=== PATIENT | male | born 1980 | race Caucasian/White ===

== ENCOUNTER 2018-01-01 17:33 | Emergency (ER) | payer MEDICAID ==
[~2018-01-01] VITALS: Ht 167.6 cm; Wt 84.8 kg
[~2018-01-01 17:33] MED LIST: ARIP5TAB4 PO; ATOR20TA66 PO; CALC-793 PO; CALC0.253 PO; CALC667T5 PO; CHLO25TA2 PO; CLON-514 PO; ESCI10TA54 PO; LEVO137T2 PO; LORA10TA7 PO; LORA1TAB PO; MELA3TAB PO; OXCA600T37 PO; PHEN100C12 PO; QUET400T PO; RISP3TAB3 PO
[2018-01-01 17:45] VITALS: BP 124/65
[2018-01-01] MEDS ORDERED: CEPH500C2 PO (21:12)
[2018-01-01] MEDS ORDERED: cephalexin 250mg capsule PO ONE (21:20)
== END 2018-01-01 21:27 | disposition home or self-care (01) ==
LOC: ER 17:34
DX: S01.511A Laceration without foreign body of lip, initial encounter (principal); I10 Essential (primary) hypertension; Z79.899 Other long term (current) drug therapy; Y08.89XA Assault by other specified means, initial encounter; Y93.89 Activity, other specified; Y92.89 Other specified places as the place of occurrence of the external cause; Y99.8 Other external cause status
CPT/HCPCS: 99283

== ENCOUNTER 2019-04-28 14:17 | Emergency (ER) | payer MEDICAID ==
[~2019-04-28] VITALS: Ht 172.7 cm; Wt 91.8 kg
[~2019-04-28 14:17] MED LIST changes: -ARIP5TAB4 PO; -CALC-793 PO; -CALC0.253 PO; +CALC667T2 PO; -CALC667T5 PO; +CHOL10002 PO; +LISI-643 PO; -MELA3TAB PO; +MELA5TAB12 PO
--- NOTE | 2019-04-28 15:26 | NUR ---
SILVESTRE,CAREGIVER FROM [facility], STATES THAT PATIENT IS OUT OF HIS 1M DAILY ATIVAN PRESCRIBED BY ÁNGELA. PATIENT IS NOT OUT OF ANY OF HIS OTHER MEDICATIONS MALLORY RODRIGUEZ AWARE THAT PATIENT IS ON BOTH LORAZEPAM 1 MG DAILY AND CLONAZEPAM 1MG TID.
--- NOTE | 2019-04-28 15:34 | NUR ---
[place] [address] DOWNS
[2019-04-28] MEDS ORDERED: LORA-269 PO (15:39)
[2019-04-28 15:54] VITALS: BP 120/80
== END 2019-04-28 16:03 | disposition home or self-care (01) ==
LOC: ER 14:18
DX: F20.9 Schizophrenia, unspecified (principal); I10 Essential (primary) hypertension; Z76.0 Encounter for issue of repeat prescription; Z86.69 Personal history of other diseases of the nervous system and sense organs; Z98.890 Other specified postprocedural states; Z79.899 Other long term (current) drug therapy
CPT/HCPCS: 99283

== ENCOUNTER 2019-08-07 15:53 | Inpatient (IN) | payer MEDICAID ==
[~2019-08-07] VITALS: Ht 177.8 cm; Wt 90.1 kg
[~2019-08-07 15:53] MED LIST changes: -ESCI10TA54 PO; +ESCI10TA61 PO; +LORA-269 PO
[2019-08-07] MEDS ORDERED: LORazepam 2 mg/ml vial IV ONE (17:25)
[2019-08-07] MEDS ORDERED: TETanus/Pertussis (Acell)/Diphther VAC/PF (Tdap-Adult) 0.5ml syringe IMVAC ONE (17:30)
[2019-08-07] MEDS ORDERED: phenytoin sod ER 100mg capsule PO ONE (17:35)
[2019-08-07] MEDS ORDERED: oxcarbazepine 150mg tablet PO SCH (17:35)
[2019-08-07 17:55] LABS: BASOPHILS # (AUTO) 0.1 X10'3 (0-0.2); BASOPHILS % (AUTO) 0.9 % (0-1); EOSINOPHILS # (AUTO) 0.3 X10'3 (0-0.9); EOSINOPHILS % (AUTO) 2.4 % (0-6); HEMATOCRIT 36.6 % (42.0-52.0); HEMOGLOBIN 12.5 g/dl (14.0-17.9); LYMPHOCYTES # (AUTO) 1.3 X10'3 (1.1-4.8); LYMPHOCYTES % (AUTO) 11.1 % (21-51); MEAN CORPUSCULAR HEMOGLOBIN 31.2 PG (27.0-31.0); MEAN CORPUSCULAR HGB CONC 34.1 g/dL (33.0-36.5); MEAN CORPUSCULAR VOLUME 91.4 FL (78-98); MEAN PLATELET VOLUME 8.6 FL (7.4-10.4); MONOCYTES # (AUTO) 1.1 X10'3 (0-0.9); MONOCYTES % (AUTO) 9.1 % (2-12); NEUTROPHILS # (AUTO) 8.9 X10'3 (1.8-7.7); NEUTROPHILS % (AUTO) 76.5 % (42-75); PLATELET COUNT 160 X10'3 (140-440); RED BLOOD COUNT 4.01 X10'6 (4.70-6.10); RED CELL DISTRIBUTION WIDTH 12.5 % (11.5-14.5); WHITE BLOOD COUNT 11.6 X10'3 (4.5-11.0)
[2019-08-07 18:02] LABS: PARTIAL THROMBOPLASTIN TIME 28 SECONDS (22-32)
[2019-08-07 18:03] LABS: ALANINE AMINOTRANSFERASE 15 U/L (12-78); ALBUMIN 4.1 G/DL (3.4-5.0); ALBUMIN/GLOBULIN RATIO 1.3 (1.1-1.5); ALKALINE PHOSPHATASE 95 IU/L (46-116); ANION GAP 6 (8-16); ASPARTATE AMINO TRANSFERASE 21 U/L (10-37); BILIRUBIN,TOTAL 0.4 MG/DL (0.1-1.0); BLOOD UREA NITROGEN 15 MG/DL (7-18); BUN/CREATININE RATIO 12.6 (5.4-32.0); CALCIUM 7.3 MG/DL (8.5-10.1); CHLORIDE 95 MMOL/L (99-107); CREATININE 1.19 MG/DL (0.60-1.10); GLUCOSE 97 MG/DL (70-104); PHENYTOIN (DILANTIN) 18.5 UG/ML (10.0-20.0); POTASSIUM 3.6 MMOL/L (3.5-5.1); SODIUM 131 MMOL/L (135-145); TOTAL CARBON DIOXIDE 30.1 MMOL/L (24-32); TOTAL PROTEIN 7.3 G/DL (6.4-8.2); eGFR 67 ML/MIN
[2019-08-07] MEDS ORDERED: normal saline 1000ml 1,000 ML IV ONE (18:10)
[2019-08-07] MEDS ORDERED: QUET300T2 PO (19:12)
[2019-08-07] MEDS ORDERED: LIT300C PO (19:12)
[2019-08-07] MEDS ORDERED: BENZ1TAB7 PO (19:12)
[2019-08-07] MEDS ORDERED: magnesium Cl slow-release 64mg tablet PO PRN (19:35)
[2019-08-07] MEDS ORDERED: potassium Cl 20 mEq SR tablet PO PRN ×2 (19:35)
[2019-08-07] MEDS ORDERED: magnesium hydroxide 30ml (MOM) UD suspension PO PRN (19:35)
[2019-08-07] MEDS ORDERED: mag hydrox/Alum hydrox/simeth 30ml oral suspension PO PRN (19:35)
[2019-08-07] MEDS ORDERED: HYDROcodone/acetaminophen 5mg/325mg tablet PO PRN (19:35)
[2019-08-07] MEDS ORDERED: magnesium 2GM in 50ml NS 50 ML IV PRN (19:35)
[2019-08-07] MEDS ORDERED: acetaminophen 325mg tablet PO PRN (19:35)
[2019-08-07] MEDS ORDERED: potassium CL 10mEq/100ml bag 100 ML IV PRN ×2 (19:35)
[2019-08-07] MEDS ORDERED: magnesium 4gm in 100ml NS 100 ML IV PRN (19:35)
[2019-08-07] MEDS ORDERED: ondansetron/PF 4mg/2ml inj IV PRN (19:35)
--- NOTE | 2019-08-07 19:43 | NUR ---
CONTACT INFORMATION: SILVESTRE WILLIAMSON ([employer]ATION HOUSE[employer] OF [employer]) PHONE IS [phone]. PLEASE CALL THIS NUMBER FOR ANY UPDATES. HIS FATHER IS THE CONSERVATOR BRODERICK KRUGER. . PT IS CONTINENT MOST OF THE TIME. HE MAY NEED EXTRA PROMPTING BUT HE WILL COOPERATE. IF PT IS ADMITTED HE WILL NOT HAVE A CAREGIVER BUT WILL HAVE SOMEONE COME IN AND CHECK IN DAILY USUALLY IN THE AM.
[2019-08-07] MEDS: K and/or MAG REPLACEMENT MC SCH (20:00)
[2019-08-07 20:08] LABS: CLARITY,URINE CLEAR (Clear); COLOR,URINE YELLOW (Yellow); GLUCOSE, URINE NEGATIVE (Neg); KETONES,URINE NEGATIVE (Neg); LEUKOCYTE ESTERASE ,URINE NEGATIVE (Neg); NITRITES, URINE NEGATIVE (Neg); OCCULT BLOOD,URINE NEGATIVE (Neg); PH,URINE 7.5 (4.8-8.0); PROTEIN,URINE NEGATIVE (Neg); UROBILINOGEN,URINE 0.2 E.U/dL (0.2-1.0)
[2019-08-07 20:11] LABS: UA COLLECTION TYPE CLN CATCH MIDSTREAM
[2019-08-07 20:17] LABS: URINE AMPHETAMINE SCREEN NEGATIVE (Neg); URINE BARBITUATE SCREEN NEGATIVE (Neg); URINE BENZODIAZEPINES SCREEN NEGATIVE (Neg); URINE CANNABINOID SCREEN NEGATIVE (Neg); URINE COCAINE SCREEN NEGATIVE (Neg); URINE METHADONE SCREEN NEGATIVE (Neg); URINE OPIATE SCREEN NEGATIVE (Neg); URINE PHENCYCLIDINE SCREEN NEGATIVE (Neg)
[2019-08-07] MEDS ORDERED: calcium chloride inj. 1,000 MG in normal saline 100ml IV soln 100 ML IV ONE (20:30)
[2019-08-07 20:45] VITALS: BP 121/66
[2019-08-07] MEDS: heparin, porcine 5000 units/ml vial SQ SCH (20:50)
[2019-08-07] MEDS: benztropine 1mg tablet PO SCH (20:50)
[2019-08-07] MEDS: quetiapine 100mg tablet PO SCH (20:50)
[2019-08-07] MEDS: Melatonin 3mg tablet PO SCH (20:50)
[2019-08-07] MEDS: phenytoin sod ER 100mg capsule PO SCH (20:51)
[2019-08-07] MEDS: clonazePAM 1mg tablet PO SCH (20:51)
[2019-08-07] MEDS: calcium acetate 667mg (phosLO) tablet PO SCH (20:51)
[2019-08-07] MEDS: lithium carbonate 300mg SR tablet (LithoBID) PO SCH (21:11)
[2019-08-08 05:46] LABS: BASOPHILS # (AUTO) 0.1 X10'3 (0-0.2); BASOPHILS % (AUTO) 0.8 % (0-1); EOSINOPHILS # (AUTO) 0.5 X10'3 (0-0.9); EOSINOPHILS % (AUTO) 5.5 % (0-6); HEMATOCRIT 34.9 % (42.0-52.0); HEMOGLOBIN 12.2 g/dl (14.0-17.9); LYMPHOCYTES % (AUTO) 22.4 % (21-51); MEAN CORPUSCULAR HEMOGLOBIN 31.9 PG (27.0-31.0); MEAN CORPUSCULAR VOLUME 91.4 FL (78-98); MEAN PLATELET VOLUME 8.9 FL (7.4-10.4); MONOCYTES # (AUTO) 0.8 X10'3 (0-0.9); MONOCYTES % (AUTO) 9.7 % (2-12); NEUTROPHILS # (AUTO) 5.4 X10'3 (1.8-7.7); NEUTROPHILS % (AUTO) 61.6 % (42-75); PLATELET COUNT 161 X10'3 (140-440); RED BLOOD COUNT 3.82 X10'6 (4.70-6.10); RED CELL DISTRIBUTION WIDTH 12.6 % (11.5-14.5); WHITE BLOOD COUNT 8.7 X10'3 (4.5-11.0)
[2019-08-08 05:55] LABS: ALANINE AMINOTRANSFERASE 16 U/L (12-78); ALBUMIN 3.5 G/DL (3.4-5.0); ALBUMIN/GLOBULIN RATIO 1.2 (1.1-1.5); ALKALINE PHOSPHATASE 84 IU/L (46-116); ANION GAP 4 (8-16); ASPARTATE AMINO TRANSFERASE 21 U/L (10-37); BILIRUBIN,TOTAL 0.4 MG/DL (0.1-1.0); BLOOD UREA NITROGEN 15 MG/DL (7-18); BUN/CREATININE RATIO 13.9 (5.4-32.0); CALCIUM 7.5 MG/DL (8.5-10.1); CHLORIDE 99 MMOL/L (99-107); CREATININE 1.08 MG/DL (0.60-1.10); GLUCOSE 88 MG/DL (70-104); MAGNESIUM 1.9 MG/DL (1.5-2.4); POTASSIUM 3.8 MMOL/L (3.5-5.1); SODIUM 135 MMOL/L (135-145); TOTAL CARBON DIOXIDE 32.3 MMOL/L (24-32); TOTAL PROTEIN 6.5 G/DL (6.4-8.2); eGFR 75 ML/MIN
[2019-08-08 06:00] VITALS: BP 112/68
--- NOTE | 2019-08-08 06:07 | NUR ---
Patient report given, questions answered and plan of care reviewed with Corey Rossi.
--- NOTE | 2019-08-08 06:15 | NUR ---
Received report from Celena FRANCIS
[2019-08-08] MEDS: K and/or MAG REPLACEMENT MC SCH ×2 (07:06→20:00)
[2019-08-08] MEDS: LORazepam 1 MG tablet PO SCH (07:25)
[2019-08-08] MEDS: citalopram 20mg tablet PO SCH (07:27)
[2019-08-08] MEDS: loratadine 10mg tablet PO SCH (07:27)
[2019-08-08] MEDS: benztropine 1mg tablet PO SCH ×2 (07:28→20:51)
[2019-08-08] MEDS: clonazePAM 1mg tablet PO SCH ×3 (07:29→20:51)
[2019-08-08] MEDS: atorvastatin 20mg tablet PO SCH (07:29)
[2019-08-08] MEDS: phenytoin sod ER 100mg capsule PO SCH ×2 (07:29→20:52)
[2019-08-08] MEDS ORDERED: levoTHYROXINE 25mcg tablet PO SCH (07:30)
[2019-08-08] MEDS: lithium carbonate 300mg SR tablet (LithoBID) PO SCH ×2 (07:30→20:52)
[2019-08-08] MEDS ORDERED: levoTHYROXINE 112mcg tablet PO SCH (07:30)
[2019-08-08] MEDS: calcium acetate 667mg (phosLO) tablet PO SCH ×2 (07:30→20:53)
[2019-08-08] MEDS: vitamin D (cholecalciferol) 1,000 unit tablet PO SCH (07:31)
[2019-08-08] MEDS: heparin, porcine 5000 units/ml vial SQ SCH ×2 (07:35→20:51)
[2019-08-08] MEDS: chlorthalidone 25mg tablet PO SCH (07:38)
[2019-08-08] MEDS: lisinopril 10 MG tablet PO SCH (07:38)
--- NOTE | 2019-08-08 07:51 | NUR ---
Barcode would not scan into [employer]. Checked medication prior to administration. BP 109/47 HR58
[2019-08-08] MEDS ORDERED: LORazepam 1 MG tablet PO ONE (08:25)
[2019-08-08 10:00] VITALS: BP 124/64
--- NOTE | 2019-08-08 13:16 | NUR ---
PER PRE KINDERGARTEN TEACHER, WOULD PREFER TO WAIT TO ADMINISTER PT'S 1300 KLONOPIN WHILE PT IS RECEIVING HIS EEG
[2019-08-08 18:00] VITALS: BP 114/70
--- NOTE | 2019-08-08 18:12 | NUR ---
GAVE REPORT TO TITO STONER
--- NOTE | 2019-08-08 18:20 | NUR ---
Received patient report from TITO Rossi. Assumed patient care.
[2019-08-08] MEDS: Melatonin 3mg tablet PO SCH (20:51)
[2019-08-08] MEDS: quetiapine 100mg tablet PO SCH (20:52)
[2019-08-08 22:00] VITALS: BP 111/72
[2019-08-09 06:00] VITALS: BP 115/65
--- NOTE | 2019-08-09 06:00 | NUR ---
Patient in room ORTHO 4009. I have received report from Pia and had the opportunity to ask questions and assume patient care.
[2019-08-09 06:26] LABS: BASOPHILS # (AUTO) 0.1 X10'3 (0-0.2); BASOPHILS % (AUTO) 0.8 % (0-1); EOSINOPHILS # (AUTO) 0.5 X10'3 (0-0.9); EOSINOPHILS % (AUTO) 5.7 % (0-6); HEMATOCRIT 35.6 % (42.0-52.0); HEMOGLOBIN 12.3 g/dl (14.0-17.9); LYMPHOCYTES # (AUTO) 1.4 X10'3 (1.1-4.8); MEAN CORPUSCULAR HEMOGLOBIN 31.9 PG (27.0-31.0); MEAN CORPUSCULAR HGB CONC 34.7 g/dL (33.0-36.5); MEAN CORPUSCULAR VOLUME 92.1 FL (78-98); MEAN PLATELET VOLUME 8.7 FL (7.4-10.4); MONOCYTES # (AUTO) 0.8 X10'3 (0-0.9); MONOCYTES % (AUTO) 10.4 % (2-12); NEUTROPHILS # (AUTO) 5.3 X10'3 (1.8-7.7); NEUTROPHILS % (AUTO) 66.1 % (42-75); PLATELET COUNT 149 X10'3 (140-440); RED BLOOD COUNT 3.86 X10'6 (4.70-6.10); RED CELL DISTRIBUTION WIDTH 12.2 % (11.5-14.5)
--- NOTE | 2019-08-09 06:31 | NUR ---
Patient report given, questions answered and plan of care reviewed with TITO Goetz.
[2019-08-09 06:46] LABS: ALANINE AMINOTRANSFERASE 19 U/L (12-78); ALBUMIN 3.5 G/DL (3.4-5.0); ALBUMIN/GLOBULIN RATIO 1.1 (1.1-1.5); ALKALINE PHOSPHATASE 85 IU/L (46-116); ANION GAP 6 (8-16); ASPARTATE AMINO TRANSFERASE 17 U/L (10-37); BILIRUBIN,TOTAL 0.2 MG/DL (0.1-1.0); BLOOD UREA NITROGEN 11 MG/DL (7-18); BUN/CREATININE RATIO 10.5 (5.4-32.0); CALCIUM 7.2 MG/DL (8.5-10.1); CHLORIDE 98 MMOL/L (99-107); CREATININE 1.05 MG/DL (0.60-1.10); GLUCOSE 88 MG/DL (70-104); MAGNESIUM 1.8 MG/DL (1.5-2.4); POTASSIUM 3.3 MMOL/L (3.5-5.1); SODIUM 136 MMOL/L (135-145); TOTAL CARBON DIOXIDE 32.1 MMOL/L (24-32); TOTAL PROTEIN 6.7 G/DL (6.4-8.2); eGFR 78 ML/MIN
[2019-08-09] MEDS ORDERED: levoTHYROXINE 125mcg tablet PO SCH (07:30)
[2019-08-09] MEDS: chlorthalidone 25mg tablet PO SCH (07:51)
[2019-08-09] MEDS: loratadine 10mg tablet PO SCH (07:51)
[2019-08-09] MEDS: citalopram 20mg tablet PO SCH (07:51)
[2019-08-09] MEDS: LORazepam 1 MG tablet PO SCH (07:51)
[2019-08-09] MEDS: benztropine 1mg tablet PO SCH (07:51)
[2019-08-09] MEDS: phenytoin sod ER 100mg capsule PO SCH (07:52)
[2019-08-09] MEDS: clonazePAM 1mg tablet PO SCH (07:52)
[2019-08-09] MEDS: atorvastatin 20mg tablet PO SCH (07:52)
[2019-08-09 07:53] VITALS: BP_SYST 113
[2019-08-09] MEDS: lithium carbonate 300mg SR tablet (LithoBID) PO SCH (07:53)
[2019-08-09] MEDS: lisinopril 10 MG tablet PO SCH (07:53)
[2019-08-09] MEDS: vitamin D (cholecalciferol) 1,000 unit tablet PO SCH (07:53)
[2019-08-09] MEDS: heparin, porcine 5000 units/ml vial SQ SCH (07:56)
[2019-08-09] MEDS: K and/or MAG REPLACEMENT MC SCH (07:59)
[2019-08-09] MEDS ORDERED: levoTHYROXINE 112mcg tablet PO SCH (08:00)
[2019-08-09] MEDS ORDERED: levoTHYROXINE 25mcg tablet PO SCH (08:00)
[2019-08-09] MEDS: calcium acetate 667mg (phosLO) tablet PO SCH (08:18)
--- NOTE | 2019-08-09 09:17 | NUR ---
Patients caregiver states that its normal for patient to not have a bowel movement in several days. Addendum: 08/09/19 at 0926 by Nelly PERAZA Amended: Links added.
--- NOTE | 2019-08-09 10:45 | NUR ---
Student documentation: I have reviewed all interventions, assessments performed and documented by Nelly [facility]KINS [facility]. Student Medication Administration: For this medication-pass time frame, all medication were reviewed, dispensed, administered and documented per hospital policy by Nellyaliya ADKINS [facility].
[2019-08-09] MEDS ORDERED: LEVO25TA7 PO (12:20)
[2019-08-09] MEDS ORDERED: OXCA300T52 PO (12:20)
[2019-08-09] MEDS ORDERED: LEVO125T8 PO (12:20)
[2019-08-09] MEDS ORDERED: POTA20TA10 PO (12:20)
--- NOTE | 2019-08-09 12:25 | NUR ---
Patient in room ORTHO 4009A. I have received report from SATURNINO, STUDENT NURSE and had the opportunity to ask questions and assume patient care.
--- NOTE | 2019-08-09 13:05 | NUR ---
Reviewed discharge instructions/meds with pt and primary caregiver. Pt is alert, oriented and happy to being going back to the shelter. All of pt's belongings and meds stored in the pharmacy were returned to pt. Pt was wheeled downstairs to be driven home by his caregiver.
[2019-08-10] MEDS ORDERED: levoTHYROXINE 112mcg tablet PO SCH ×2 (07:30)
[2019-08-10] MEDS ORDERED: levoTHYROXINE 25mcg tablet PO SCH (07:30)
== END 2019-08-09 13:10 | disposition home or self-care (01) | DRG 53 ==
LOC: ER 15:54 → ED HOLD 19:32 → EDBEDREQ 20:00 → ORTHO 4S 20:25
PROVIDERS: ADMIT Internal Medicine; ATTEND Family Medicine
PROC: 4A10X4Z Monitoring of Central Nervous Electrical Activity, External Approach (ICD-10-PCS; principal; 2019-08-08)
DX: G40.909 Epilepsy, unspecified, not intractable, without status epilepticus (principal); F20.9 Schizophrenia, unspecified; E03.9 Hypothyroidism, unspecified; S80.02XA Contusion of left knee, initial encounter; S80.01XA Contusion of right knee, initial encounter; W18.39XA Other fall on same level, initial encounter; E55.9 Vitamin D deficiency, unspecified; E78.00 Pure hypercholesterolemia, unspecified; E78.5 Hyperlipidemia, unspecified; E87.6 Hypokalemia; I10 Essential (primary) hypertension; R94.6 Abnormal results of thyroid function studies; Y93.89 Activity, other specified; Y92.89 Other specified places as the place of occurrence of the external cause; Y99.8 Other external cause status; Z79.899 Other long term (current) drug therapy
CPT/HCPCS: 36415; 70450; 70551; 80053; 80178; 80183; 80185; 80305; 81003; 82140; 82306; 83735; 84443; 85025; 85610; 85730; 87081; 90471; 90715; 95816; 96361; 96374; 99285; G0378; J1644; J2060; J7030

== ENCOUNTER 2019-08-14 14:48 | Emergency (ER) | payer MEDICAID ==
[~2019-08-14] VITALS: Ht 172.7 cm; Wt 89.5 kg
[~2019-08-14 14:48] MED LIST changes: +BENZ1TAB7 PO; +LEVO125T8 PO; -LEVO137T2 PO; +LEVO25TA7 PO; +LIT300C PO; -LORA-269 PO; +OXCA300T52 PO; +POTA20TA10 PO; +QUET300T2 PO; -QUET400T PO; -RISP3TAB3 PO
[2019-08-14 15:13] VITALS: BP 112/76
[2019-08-14] MEDS ORDERED: OXCA600T9 PO (15:37)
--- NOTE | 2019-08-14 15:51 | NUR ---
PATIENT IS HERE FOR CAREGIVER. PATIENT HAS KNOWN SEIZURE DISORDER AND WAS RECENTLY PRESCRIBED A LONG ACTING SEIZURE MEDICATION THAT WILL NOT BE PAID FOR BY THE INSURANCE. CAREGIVER STATES THAT PATIENT IS STILL HAVING SEIZURE ACTIVITY AND NEEDS ALTERNATIVE MEDICATION ORDERED THAT WILL BE COVERED BY THE INSURANCE.
== END 2019-08-14 16:00 | disposition home or self-care (01) ==
LOC: ER 14:49
DX: R56.9 Unspecified convulsions (principal); I10 Essential (primary) hypertension; F20.9 Schizophrenia, unspecified; Z76.0 Encounter for issue of repeat prescription; Z98.890 Other specified postprocedural states; Z79.899 Other long term (current) drug therapy
CPT/HCPCS: 99284

== ENCOUNTER 2019-08-20 10:58 | Emergency (ER) | payer MEDICAID ==
[~2019-08-20] VITALS: Ht 172.7 cm; Wt 87.0 kg
[~2019-08-20 10:58] MED LIST changes: +OXCA600T9 PO
[2019-08-20 11:05] VITALS: BP 141/116
[2019-08-20] MEDS ORDERED: LIDOcaine 1% W/epiNEPHrine 1:100,000 20ml vial SQ ONE (11:40)
--- NOTE | 2019-08-20 11:55 | NUR ---
dr oro assisted with i&d procedure.pt dressing done as per md instruction.pt tolerated the procedure.network lead at bedside.
[2019-08-20] MEDS ORDERED: SULF1TAB49 PO (11:59)
== END 2019-08-20 12:15 | disposition home or self-care (01) ==
LOC: ER 10:59
DX: L02.416 Cutaneous abscess of left lower limb (principal); I10 Essential (primary) hypertension; F20.9 Schizophrenia, unspecified; Z79.899 Other long term (current) drug therapy
CPT/HCPCS: 10060; 99284

== ENCOUNTER 2019-08-23 12:38 | Inpatient (IN) | payer MEDICAID ==
[~2019-08-23] VITALS: Ht 175.3 cm; Wt 90.9 kg
[~2019-08-23 12:38] MED LIST changes: +SULF1TAB49 PO
[2019-08-23 13:26] LABS: BASOPHILS # (AUTO) 0.1 X10'3 (0-0.2); BASOPHILS % (AUTO) 0.6 % (0-1); EOSINOPHILS # (AUTO) 0.2 X10'3 (0-0.9); EOSINOPHILS % (AUTO) 1.7 % (0-6); HEMATOCRIT 34.8 % (42.0-52.0); HEMOGLOBIN 11.8 g/dl (14.0-17.9); LYMPHOCYTES # (AUTO) 1.1 X10'3 (1.1-4.8); LYMPHOCYTES % (AUTO) 8.5 % (21-51); MEAN CORPUSCULAR HEMOGLOBIN 31.6 PG (27.0-31.0); MEAN CORPUSCULAR HGB CONC 33.9 g/dL (33.0-36.5); MEAN CORPUSCULAR VOLUME 93.3 FL (78-98); MONOCYTES # (AUTO) 0.9 X10'3 (0-0.9); MONOCYTES % (AUTO) 7.1 % (2-12); NEUTROPHILS # (AUTO) 10.8 X10'3 (1.8-7.7); NEUTROPHILS % (AUTO) 82.1 % (42-75); PLATELET COUNT 204 X10'3 (140-440); RED BLOOD COUNT 3.73 X10'6 (4.70-6.10); RED CELL DISTRIBUTION WIDTH 12.8 % (11.5-14.5); WHITE BLOOD COUNT 13.1 X10'3 (4.5-11.0)
[2019-08-23] MEDS ORDERED: LEVO137T2 PO (13:33)
[2019-08-23] MEDS ORDERED: CefTRIAXone 2gm/D5W 50ml 50 ML IV ONE (13:40)
[2019-08-23] MEDS ORDERED: vancomycin/NS 1 GM ADD-VANTAGE 250 ML IV ONE (13:40)
[2019-08-23] MEDS ORDERED: normal saline 1000ML IV soln IV ONE (13:40)
[2019-08-23 13:42] LABS: PARTIAL THROMBOPLASTIN TIME 32 SECONDS (22-32)
[2019-08-23] MEDS ORDERED: QUET200T30 PO (13:48)
[2019-08-23] MEDS ORDERED: BACDS PO (13:48)
[2019-08-23] MEDS ORDERED: ESCI20TA45 PO (13:51)
[2019-08-23 14:02] LABS: ALANINE AMINOTRANSFERASE 16 U/L (12-78); ALBUMIN 3.5 G/DL (3.4-5.0); ALBUMIN/GLOBULIN RATIO 0.9 (1.1-1.5); ALKALINE PHOSPHATASE 86 IU/L (46-116); ANION GAP 7 (8-16); ASPARTATE AMINO TRANSFERASE 14 U/L (10-37); BILIRUBIN,TOTAL 0.3 MG/DL (0.1-1.0); BLOOD UREA NITROGEN 19 MG/DL (7-18); CHLORIDE 96 MMOL/L (99-107); CREATININE 1.46 MG/DL (0.60-1.10); GLUCOSE 85 MG/DL (70-104); POTASSIUM 3.7 MMOL/L (3.5-5.1); SODIUM 131 MMOL/L (135-145); TOTAL CARBON DIOXIDE 28.3 MMOL/L (24-32); TOTAL PROTEIN 7.4 G/DL (6.4-8.2); eGFR 53 ML/MIN
[2019-08-23] MEDS ORDERED: acetaminophen 325mg tablet PO PRN ×3 (14:20→15:50)
[2019-08-23] MEDS ORDERED: mag hydrox/Alum hydrox/simeth 30ml oral suspension PO PRN ×2 (14:20→15:50)
[2019-08-23] MEDS ORDERED: ondansetron/PF 4mg/2ml inj IV PRN ×2 (14:20→15:50)
[2019-08-23] MEDS ORDERED: magnesium hydroxide 30ml (MOM) UD suspension PO PRN ×2 (14:20→15:50)
[2019-08-23 15:19] LABS: CLARITY,URINE CLEAR (Clear); COLOR,URINE YELLOW (Yellow); GLUCOSE, URINE NEGATIVE (Neg); KETONES,URINE NEGATIVE (Neg); LEUKOCYTE ESTERASE ,URINE NEGATIVE (Neg); NITRITES, URINE NEGATIVE (Neg); OCCULT BLOOD,URINE NEGATIVE (Neg); PH,URINE 7.5 (4.8-8.0); PROTEIN,URINE NEGATIVE (Neg); UA COLLECTION TYPE VOIDED; UROBILINOGEN,URINE 0.2 E.U/dL (0.2-1.0)
[2019-08-23] MEDS ORDERED: potassium Cl 20 mEq SR tablet PO PRN ×2 (15:50)
[2019-08-23] MEDS ORDERED: potassium CL 10mEq/100ml bag 100 ML IV PRN ×2 (15:50)
[2019-08-23] MEDS ORDERED: magnesium Cl slow-release 64mg tablet PO PRN (15:50)
[2019-08-23] MEDS ORDERED: bisacodyl 10mg suppository rectal RC PRN (15:50)
[2019-08-23] MEDS ORDERED: acetaminophen 650mg rectal suppository RC PRN (15:50)
[2019-08-23] MEDS ORDERED: morphine 2 MG/ML inj. syringe IV PRN ×2 (15:50)
[2019-08-23] MEDS ORDERED: HYDROcodone/acetaminophen 10/325mg tab PO PRN (15:50)
[2019-08-23] MEDS ORDERED: diphenhydrAMINE 25mg capsule PO PRN (15:50)
[2019-08-23] MEDS ORDERED: HYDROcodone/acetaminophen 5mg/325mg tablet PO PRN (15:50)
[2019-08-23] MEDS ORDERED: magnesium 4gm in 100ml NS 100 ML IV PRN (15:50)
[2019-08-23] MEDS ORDERED: magnesium 2GM in 50ml NS 50 ML IV PRN (15:50)
[2019-08-23] MEDS: piperacillin/tazo 3.375gm/50ml 50 ML IV SCH ×2 (16:00→18:14)
[2019-08-23 16:15] LABS: HEMOGLOBIN A1C 5.3 % (4.5-6.2)
[2019-08-23 16:22] LABS: PHENYTOIN (DILANTIN) 12.5 UG/ML (10.0-20.0)
[2019-08-23] MEDS: normal saline 1000ml 1,000 ML IV SCH (18:14)
[2019-08-23 18:55] VITALS: BP 102/61
--- NOTE | 2019-08-23 18:55 | NUR ---
PATIENT ADMITTED TO ROOM 357B FROM ER FOR ABSCESS, CELLULITIS TO LEFT CALF AND JONES. PLACED COMFORTABLE IN BED. VITAL SIGNS TAKEN AND RECORDED.
[2019-08-23] MEDS: K and/or MAG REPLACEMENT MC SCH (20:00)
[2019-08-23] MEDS ORDERED: calcium acetate 667mg (phosLO) tablet PO SCH (20:00)
[2019-08-23] MEDS: benztropine 1mg tablet PO SCH (21:41)
[2019-08-23] MEDS: phenytoin sod ER 100mg capsule PO SCH (21:41)
[2019-08-23] MEDS: quetiapine 100mg tablet PO SCH (21:42)
[2019-08-23] MEDS: lithium carbonate 150mg capsule PO SCH (21:42)
[2019-08-23] MEDS: clonazePAM 1mg tablet PO SCH (21:43)
[2019-08-23] MEDS: oxcarbazepine 150mg tablet PO SCH (21:43)
[2019-08-23] MEDS: Melatonin 3mg tablet PO SCH (21:43)
[2019-08-23] MEDS: heparin, porcine 5000 units/ml vial SQ SCH (21:44)
--- NOTE | 2019-08-23 22:00 | NUR ---
TRIED TO DART PATIENT BUT EVERYTIME QUESTION IS ASKED HE ANSWERS " I DON'T KNOW" PATIENT IS DEVELOPMENTAL DELAYED, EMERGENCY MEDICAL TECH DID NOT COME WITH PATIENT UPON ADMIT.
[2019-08-24] VITALS: BP 98/55
[2019-08-24] MEDS: piperacillin/tazo 3.375gm/50ml 50 ML IV SCH ×3 (01:07→19:15)
[2019-08-24] MEDS: normal saline 1000ml 1,000 ML IV SCH ×3 (03:25→21:35)
[2019-08-24] MEDS: VANCOmycin 1250MG/NS 250ml Bag 250 ML IV SCH ×2 (03:25→15:26)
[2019-08-24 05:20] LABS: BASOPHILS % (AUTO) 0.7 % (0-1); EOSINOPHILS # (AUTO) 0.4 X10'3 (0-0.9); EOSINOPHILS % (AUTO) 5.7 % (0-6); HEMATOCRIT 30.9 % (42.0-52.0); HEMOGLOBIN 10.7 g/dl (14.0-17.9); LYMPHOCYTES # (AUTO) 1.1 X10'3 (1.1-4.8); MEAN CORPUSCULAR HEMOGLOBIN 32.3 PG (27.0-31.0); MEAN CORPUSCULAR HGB CONC 34.6 g/dL (33.0-36.5); MEAN CORPUSCULAR VOLUME 93.2 FL (78-98); MEAN PLATELET VOLUME 8.1 FL (7.4-10.4); MONOCYTES # (AUTO) 0.7 X10'3 (0-0.9); MONOCYTES % (AUTO) 8.9 % (2-12); NEUTROPHILS # (AUTO) 5.3 X10'3 (1.8-7.7); NEUTROPHILS % (AUTO) 69.7 % (42-75); PLATELET COUNT 191 X10'3 (140-440); RED BLOOD COUNT 3.32 X10'6 (4.70-6.10); RED CELL DISTRIBUTION WIDTH 12.6 % (11.5-14.5); WHITE BLOOD COUNT 7.6 X10'3 (4.5-11.0)
[2019-08-24 05:42] LABS: ALANINE AMINOTRANSFERASE 12 U/L (12-78); ALBUMIN 2.8 G/DL (3.4-5.0); ALBUMIN/GLOBULIN RATIO 0.8 (1.1-1.5); ALKALINE PHOSPHATASE 71 IU/L (46-116); ANION GAP 7 (8-16); ASPARTATE AMINO TRANSFERASE 14 U/L (10-37); BILIRUBIN,TOTAL 0.2 MG/DL (0.1-1.0); BLOOD UREA NITROGEN 14 MG/DL (7-18); BUN/CREATININE RATIO 10.9 (5.4-32.0); CALCIUM 6.7 MG/DL (8.5-10.1); CHLORIDE 100 MMOL/L (99-107); CHOL/HDL RATIO 3.1 (0.00-4.99); CHOLESTEROL 119 MG/DL (0-200); CREATININE 1.28 MG/DL (0.60-1.10); GLUCOSE 124 MG/DL (70-104); HDL CHOLESTEROL 39 MG/DL (35-60); LDL CHOLESTEROL 62 MG/DL (50-100); MAGNESIUM 1.8 MG/DL (1.5-2.4); PHOSPHORUS 4.8 MG/DL (2.3-4.5); POTASSIUM 3.6 MMOL/L (3.5-5.1); SODIUM 134 MMOL/L (135-145); TOTAL CARBON DIOXIDE 26.7 MMOL/L (24-32); TOTAL PROTEIN 6.3 G/DL (6.4-8.2); TRIGLYCERIDES 111 MG/DL (20-135); eGFR 62 ML/MIN
--- NOTE | 2019-08-24 06:00 | NUR ---
Patient in room CECELIA 357. I have received report from TITO Morrison and had the opportunity to ask questions and assume patient care.
--- NOTE | 2019-08-24 06:23 | NUR ---
Problems reprioritized. Patient report given, questions answered & plan of care reviewed with ROSETTE FRANCIS.
[2019-08-24] MEDS ORDERED: levoTHYROXINE 112mcg tablet PO SCH (07:00)
[2019-08-24] MEDS ORDERED: levoTHYROXINE 25mcg tablet PO SCH (07:00)
[2019-08-24] MEDS: K and/or MAG REPLACEMENT MC SCH ×2 (07:12→20:00)
[2019-08-24 08:00] VITALS: BP 96/64
[2019-08-24] MEDS: heparin, porcine 5000 units/ml vial SQ SCH ×3 (08:00→21:32)
[2019-08-24] MEDS: chlorthalidone 25mg tablet PO SCH (08:00)
[2019-08-24] MEDS: lisinopril 10 MG tablet PO SCH (08:00)
[2019-08-24] MEDS: lithium carbonate 150mg capsule PO SCH ×2 (10:00→21:33)
[2019-08-24] MEDS: quetiapine 100mg tablet PO SCH ×4 (10:00→21:34)
[2019-08-24] MEDS: loratadine 10mg tablet PO SCH (10:00)
[2019-08-24] MEDS: clonazePAM 1mg tablet PO SCH ×3 (10:01→21:33)
[2019-08-24] MEDS: vitamin D (cholecalciferol) 1,000 unit tablet PO SCH (10:01)
[2019-08-24] MEDS: ESCITALOPRAM OXALATE 5 MG TABLET PO SCH (10:01)
[2019-08-24] MEDS: LORazepam 1 MG tablet PO SCH (10:03)
[2019-08-24] MEDS: phenytoin sod ER 100mg capsule PO SCH ×2 (10:03→21:33)
[2019-08-24] MEDS: benztropine 1mg tablet PO SCH ×2 (10:03→21:33)
[2019-08-24] MEDS: atorvastatin 20mg tablet PO SCH (10:03)
[2019-08-24] MEDS: oxcarbazepine 150mg tablet PO SCH ×3 (10:05→21:32)
[2019-08-24 11:00] VITALS: BP 96/60
[2019-08-24] MEDS ORDERED: calcium acetate 667mg (PhosLO) capsule PO SCH ×2 (11:56→21:02)
--- NOTE | 2019-08-24 17:00 | NUR ---
Spoke with pharmacy regarding leftover Zosyn from before MRI, Pharmacist okayed during zosyn's back to back as the extended infusion rate allows. Night TITO Morrison is aware.
[2019-08-24] MEDS ORDERED: gadobutrol 10mmol/10ml inj. IV ONE (17:01)
--- NOTE | 2019-08-24 18:00 | NUR ---
Problems reprioritized. Patient report given, questions answered & plan of care reviewed with TITO Morrison.
--- NOTE | 2019-08-24 18:30 | NUR ---
Patient in room CECELIA 357. I have received report from ROSETTE FRANCIS and had the opportunity to ask questions and assume patient care.
[2019-08-24 20:00] VITALS: BP 105/63
[2019-08-24] MEDS: calcium acetate 667mg (PhosLO) capsule PO SCH (21:33)
[2019-08-24] MEDS: Melatonin 3mg tablet PO SCH (21:34)
[2019-08-24] MEDS: lactobacillus rhamnosus 10,000 MMU CELLS/CAPSULE PO SCH (21:34)
[2019-08-25] VITALS: BP 92/51
[2019-08-25] MEDS: piperacillin/tazo 3.375gm/50ml 50 ML IV SCH ×2 (01:18→08:34)
[2019-08-25] MEDS ORDERED: VANCOMYCIN LEVEL IV ONE (01:30)
[2019-08-25 02:05] LABS: BASOPHILS # (AUTO) 0.1 X10'3 (0-0.2); BASOPHILS % (AUTO) 1.3 % (0-1); EOSINOPHILS # (AUTO) 0.5 X10'3 (0-0.9); EOSINOPHILS % (AUTO) 7.7 % (0-6); HEMATOCRIT 30.7 % (42.0-52.0); HEMOGLOBIN 10.6 g/dl (14.0-17.9); LYMPHOCYTES # (AUTO) 1.3 X10'3 (1.1-4.8); LYMPHOCYTES % (AUTO) 21.1 % (21-51); MEAN CORPUSCULAR HEMOGLOBIN 32.2 PG (27.0-31.0); MEAN CORPUSCULAR HGB CONC 34.5 g/dL (33.0-36.5); MEAN CORPUSCULAR VOLUME 93.3 FL (78-98); MEAN PLATELET VOLUME 7.6 FL (7.4-10.4); MONOCYTES # (AUTO) 0.7 X10'3 (0-0.9); MONOCYTES % (AUTO) 11.1 % (2-12); NEUTROPHILS # (AUTO) 3.6 X10'3 (1.8-7.7); NEUTROPHILS % (AUTO) 58.8 % (42-75); PLATELET COUNT 194 X10'3 (140-440); RED BLOOD COUNT 3.29 X10'6 (4.70-6.10); RED CELL DISTRIBUTION WIDTH 12.4 % (11.5-14.5)
[2019-08-25 02:10] LABS: ALANINE AMINOTRANSFERASE 18 U/L (12-78); ALBUMIN 2.7 G/DL (3.4-5.0); ALBUMIN/GLOBULIN RATIO 0.8 (1.1-1.5); ALKALINE PHOSPHATASE 70 IU/L (46-116); ANION GAP 7 (8-16); ASPARTATE AMINO TRANSFERASE 16 U/L (10-37); BILIRUBIN,TOTAL 0.1 MG/DL (0.1-1.0); BLOOD UREA NITROGEN 11 MG/DL (7-18); BUN/CREATININE RATIO 9.8 (5.4-32.0); CALCIUM 6.6 MG/DL (8.5-10.1); CHLORIDE 100 MMOL/L (99-107); CREATININE 1.12 MG/DL (0.60-1.10); GLUCOSE 88 MG/DL (70-104); MAGNESIUM 1.9 MG/DL (1.5-2.4); POTASSIUM 3.6 MMOL/L (3.5-5.1); SODIUM 135 MMOL/L (135-145); TOTAL CARBON DIOXIDE 28.4 MMOL/L (24-32); TOTAL PROTEIN 6.3 G/DL (6.4-8.2); VANCOMYCIN,TROUGH 12.5 UG/ML (6.0-14.0); eGFR 72 ML/MIN
[2019-08-25] MEDS: VANCOmycin 1250MG/NS 250ml Bag 250 ML IV SCH (02:48)
--- NOTE | 2019-08-25 06:23 | NUR ---
Problems reprioritized. Patient report given, questions answered & plan of care reviewed with MELODY FRANCIS.
--- NOTE | 2019-08-25 06:25 | NUR ---
Patient in room CECELIA 357. I have received report from TITO Lozano and had the opportunity to ask questions and assume patient care.
[2019-08-25] MEDS ORDERED: levoTHYROXINE 75mcg tablet PO SCH (07:00)
[2019-08-25 07:40] VITALS: BP 107/58
[2019-08-25] MEDS: K and/or MAG REPLACEMENT MC SCH (08:00)
[2019-08-25] MEDS: benztropine 1mg tablet PO SCH (08:31)
[2019-08-25] MEDS: ESCITALOPRAM OXALATE 5 MG TABLET PO SCH (08:31)
[2019-08-25] MEDS: heparin, porcine 5000 units/ml vial SQ SCH (08:31)
[2019-08-25] MEDS: LORazepam 1 MG tablet PO SCH (08:32)
[2019-08-25] MEDS: atorvastatin 20mg tablet PO SCH (08:32)
[2019-08-25] MEDS: calcium acetate 667mg (PhosLO) capsule PO SCH (08:32)
[2019-08-25] MEDS: lithium carbonate 150mg capsule PO SCH (08:32)
[2019-08-25] MEDS: lactobacillus rhamnosus 10,000 MMU CELLS/CAPSULE PO SCH (08:32)
[2019-08-25] MEDS: lisinopril 10 MG tablet PO SCH (08:32)
[2019-08-25] MEDS: clonazePAM 1mg tablet PO SCH ×2 (08:32→12:38)
[2019-08-25] MEDS: loratadine 10mg tablet PO SCH (08:33)
[2019-08-25] MEDS: quetiapine 100mg tablet PO SCH ×2 (08:33→12:38)
[2019-08-25] MEDS: vitamin D (cholecalciferol) 1,000 unit tablet PO SCH (08:33)
[2019-08-25] MEDS: chlorthalidone 25mg tablet PO SCH (08:33)
[2019-08-25] MEDS: oxcarbazepine 150mg tablet PO SCH ×2 (08:33→12:38)
[2019-08-25] MEDS: phenytoin sod ER 100mg capsule PO SCH (08:33)
--- NOTE | 2019-08-25 09:55 | NUR ---
PAGER ID: [phone] MESSAGE: [phone] Goldy Wagner: Family was wondering about possibility of DC today. TITO Hernadez Ext [phone]
[2019-08-25 10:00] VITALS: BP 106/68
[2019-08-25] MEDS ORDERED: LACT1CAP26 PO (10:39)
[2019-08-25] MEDS ORDERED: CLIN300C3 PO (10:39)
--- NOTE | 2019-08-25 13:13 | NUR ---
Discharged. PIV out. Wrist band off. Caregiver signed papers. Patient and caregiver educated on meds, follow-up, wound care and cellulitis. Stable per Dr Fernández for DC. Patient was wheeled out to ride.
[2019-08-25] MEDS ORDERED: LEVO100T9 PO (22:13)
[2019-08-25] MEDS ORDERED: LEVO50TA8 PO (22:13)
== END 2019-08-25 12:55 | disposition home or self-care (01) | DRG 383 ==
LOC: ER 12:39 → ED HOLD 14:19 → UNDOADMIN 14:19 → ED HOLD 15:47 → SUR 3N 19:15 → ED HOLD 19:15
PROVIDERS: ADMIT Family Medicine; ATTEND Family Medicine
DX: L03.116 Cellulitis of left lower limb (principal); F20.9 Schizophrenia, unspecified; E03.9 Hypothyroidism, unspecified; F31.9 Bipolar disorder, unspecified; G40.909 Epilepsy, unspecified, not intractable, without status epilepticus; I10 Essential (primary) hypertension; N28.9 Disorder of kidney and ureter, unspecified
CPT/HCPCS: 36415; 73720; 80053; 80061; 80178; 80185; 80202; 81003; 83036; 83605; 83735; 84100; 84145; 84443; 85025; 85610; 85730; 87040; 87081; 96365; 96368; 99285; A9585; G0378; J0696; J1644; J2543; J3370; J7030

== ENCOUNTER 2019-10-16 11:17 | Emergency (ER) | payer MEDICAID ==
[~2019-10-16] VITALS: Ht 172.7 cm; Wt 87.3 kg
[~2019-10-16 11:17] MED LIST changes: -ESCI10TA61 PO; +ESCI20TA45 PO; +LACT1CAP26 PO; +LEVO100T9 PO; -LEVO125T8 PO; -LEVO25TA7 PO; +LEVO50TA8 PO; -OXCA300T52 PO; -OXCA600T37 PO; -POTA20TA10 PO; +QUET200T30 PO; -SULF1TAB49 PO
[2019-10-16] MEDS ORDERED: LIDOcaine 1% W/epiNEPHrine 1:200,000 10ml vial IJ ONE (11:40)
--- NOTE | 2019-10-16 12:34 | NUR ---
MALLORY Baker at bedside to suture laceration on Right Upper Face.
[2019-10-16 12:55] VITALS: BP 147/91
== END 2019-10-16 13:00 | disposition home or self-care (01) ==
LOC: ER 11:18
DX: S01.81XA Laceration without foreign body of other part of head, initial encounter (principal); R22.0 Localized swelling, mass and lump, head; I10 Essential (primary) hypertension; F20.9 Schizophrenia, unspecified; Z86.69 Personal history of other diseases of the nervous system and sense organs; Z98.890 Other specified postprocedural states; Z79.899 Other long term (current) drug therapy; W19.XXXA Unspecified fall, initial encounter; Y93.89 Activity, other specified; Y92.89 Other specified places as the place of occurrence of the external cause; Y99.8 Other external cause status
CPT/HCPCS: 12002; 70486; 99284

== ENCOUNTER 2020-03-30 15:20 | Emergency (ER) | payer MEDICAID ==
[~2020-03-30] VITALS: Ht 180.3 cm; Wt 68.2 kg
[2020-03-30] MEDS ORDERED: levetiracetam-NS 1000mg/100ml 100 ML IV ONE (16:00)
[2020-03-30] MEDS ORDERED: normal saline 1000ml 1,000 ML IV ONE (16:00)
[2020-03-30] MEDS ORDERED: levetiracetam inj 1,000 MG in normal saline 100ml IV soln 90 ML IV ONE (16:00)
[2020-03-30 16:22] LABS: CLARITY,URINE CLEAR (Clear); COLOR,URINE YELLOW (Yellow); GLUCOSE, URINE NEGATIVE (Neg); KETONES,URINE NEGATIVE (Neg); LEUKOCYTE ESTERASE ,URINE NEGATIVE (Neg); NITRITES, URINE NEGATIVE (Neg); OCCULT BLOOD,URINE NEGATIVE (Neg); PROTEIN,URINE NEGATIVE (Neg); UROBILINOGEN,URINE 0.2 E.U/dL (0.2-1.0)
[2020-03-30 16:23] LABS: UA COLLECTION TYPE CLN CATCH MIDSTREAM
[2020-03-30 17:07] LABS: BASOPHILS # (AUTO) 0.1 X10'3 (0-0.2); BASOPHILS % (AUTO) 0.7 % (0-1); EOSINOPHILS % (AUTO) 0.2 % (0-6); HEMATOCRIT 36.5 % (42.0-52.0); HEMOGLOBIN 12.5 g/dl (14.0-17.9); LYMPHOCYTES # (AUTO) 0.8 X10'3 (1.1-4.8); MEAN CORPUSCULAR HGB CONC 34.2 g/dL (33.0-36.5); MEAN CORPUSCULAR VOLUME 93.5 FL (78-98); MONOCYTES # (AUTO) 0.6 X10'3 (0-0.9); MONOCYTES % (AUTO) 6.3 % (2-12); NEUTROPHILS # (AUTO) 7.6 X10'3 (1.8-7.7); NEUTROPHILS % (AUTO) 83.8 % (42-75); PLATELET COUNT 178 X10'3 (140-440); RED BLOOD COUNT 3.91 X10'6 (4.70-6.10); RED CELL DISTRIBUTION WIDTH 13.1 % (11.5-14.5)
[2020-03-30 17:16] LABS: ALANINE AMINOTRANSFERASE 23 U/L (12-78); ALBUMIN 4.1 G/DL (3.4-5.0); ALBUMIN/GLOBULIN RATIO 1.3 (1.1-1.5); ALKALINE PHOSPHATASE 93 IU/L (46-116); ANION GAP 8 (8-16); ASPARTATE AMINO TRANSFERASE 17 U/L (10-37); BILIRUBIN,TOTAL 0.2 MG/DL (0.1-1.0); BLOOD UREA NITROGEN 11 MG/DL (7-18); BUN/CREATININE RATIO 12.8 (5.4-32.0); CHLORIDE 94 MMOL/L (99-107); CREATININE 0.86 MG/DL (0.60-1.10); GLUCOSE 89 MG/DL (70-104); PHENYTOIN (DILANTIN) 16.2 UG/ML (10.0-20.0); POTASSIUM 3.9 MMOL/L (3.5-5.1); SODIUM 130 MMOL/L (135-145); TOTAL CARBON DIOXIDE 27.9 MMOL/L (24-32); TOTAL PROTEIN 7.3 G/DL (6.4-8.2); eGFR > 90 ML/MIN
--- NOTE | 2020-03-30 18:25 | NUR ---
updated cg umu on pt status and answered questions r/t lab results. recommended cg discuss in more detail with pcp particularly as his questions r/t pt's medication changes.
--- NOTE | 2020-03-30 18:28 | NUR ---
Patient resting comfortably with helmet on. 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
[2020-03-30 18:53] VITALS: BP 123/84
== END 2020-03-30 18:54 | disposition home or self-care (01) ==
LOC: ER 15:21
DX: R56.9 Unspecified convulsions (principal); I10 Essential (primary) hypertension; F20.9 Schizophrenia, unspecified; Z86.69 Personal history of other diseases of the nervous system and sense organs; Z98.890 Other specified postprocedural states; Z79.899 Other long term (current) drug therapy
CPT/HCPCS: 36415; 71045; 80053; 80185; 81003; 85025; 96365; 96366; 99285; J1953; J7030

== ENCOUNTER 2020-04-15 11:18 | Emergency (ER) | payer MEDICAID ==
[~2020-04-15] VITALS: Ht 172.7 cm; Wt 70.4 kg
[2020-04-15] MEDS ORDERED: acetaminophen 325mg tablet PO ONE (11:35)
--- NOTE | 2020-04-15 12:53 | NUR ---
Message left for Talib at [phone] re: pt's dc status and need for transportation. Requested Talib call ed, with number provided, to identify ETA. Primary rn Jatinedr updated.
[2020-04-15 13:35] VITALS: BP 106/63
== END 2020-04-15 13:22 | disposition home or self-care (01) ==
LOC: ER 11:18
DX: R50.9 Fever, unspecified (principal); I10 Essential (primary) hypertension; F20.9 Schizophrenia, unspecified; Z79.899 Other long term (current) drug therapy
CPT/HCPCS: 36415; 71045; 99284

== ENCOUNTER 2020-10-30 19:38 | Emergency (ER) | payer MEDICAID ==
[~2020-10-30] VITALS: Ht 172.7 cm; Wt 90.0 kg
[~2020-10-30 19:38] MED LIST changes: -CLON-514 PO; +CLON1TAB96 PO; +ESCI20TA39 PO; -ESCI20TA45 PO
[2020-10-30 20:38] LABS: BASOPHILS % (AUTO) 0.4 % (0-1); EOSINOPHILS # (AUTO) 0.2 X10'3 (0-0.9); EOSINOPHILS % (AUTO) 2.1 % (0-6); HEMATOCRIT 36.5 % (42.0-52.0); HEMOGLOBIN 12.5 g/dl (14.0-17.9); LYMPHOCYTES # (AUTO) 0.9 X10'3 (1.1-4.8); LYMPHOCYTES % (AUTO) 9.8 % (21-51); MEAN CORPUSCULAR HEMOGLOBIN 32.3 PG (27.0-31.0); MEAN CORPUSCULAR HGB CONC 34.2 g/dL (33.0-36.5); MEAN CORPUSCULAR VOLUME 94.4 FL (78-98); MEAN PLATELET VOLUME 8.6 FL (7.4-10.4); MONOCYTES # (AUTO) 0.6 X10'3 (0-0.9); MONOCYTES % (AUTO) 6.4 % (2-12); NEUTROPHILS # (AUTO) 7.3 X10'3 (1.8-7.7); NEUTROPHILS % (AUTO) 81.3 % (42-75); PLATELET COUNT 137 X10'3 (140-440); RED BLOOD COUNT 3.86 X10'6 (4.70-6.10); RED CELL DISTRIBUTION WIDTH 13.6 % (11.5-14.5)
[2020-10-30 20:45] LABS: ALANINE AMINOTRANSFERASE 27 U/L (12-78); ALBUMIN 3.9 G/DL (3.4-5.0); ALBUMIN/GLOBULIN RATIO 1.3 (1.1-1.5); ALKALINE PHOSPHATASE 91 IU/L (46-116); ANION GAP 10 (8-16); ASPARTATE AMINO TRANSFERASE 22 U/L (10-37); BILIRUBIN,TOTAL 0.2 MG/DL (0.1-1.0); BLOOD UREA NITROGEN 20 MG/DL (7-18); BUN/CREATININE RATIO 19.6 (5.4-32.0); CALCIUM 7.1 MG/DL (8.5-10.1); CHLORIDE 96 MMOL/L (99-107); CREATININE 1.02 MG/DL (0.60-1.10); GLUCOSE 97 MG/DL (70-104); POTASSIUM 3.9 MMOL/L (3.5-5.1); SODIUM 135 MMOL/L (135-145); TOTAL CARBON DIOXIDE 29.4 MMOL/L (24-32); TOTAL PROTEIN 6.9 G/DL (6.4-8.2); eGFR 80 ML/MIN
[2020-10-30] MEDS ORDERED: calcium carbonate 500mg tablet PO ONE (21:10)
[2020-10-30 23:14] VITALS: BP 132/85
== END 2020-10-30 23:17 | disposition home or self-care (01) ==
LOC: ER 19:39
DX: S00.83XA Contusion of other part of head, initial encounter (principal); R56.9 Unspecified convulsions; I10 Essential (primary) hypertension; F20.9 Schizophrenia, unspecified; Z79.899 Other long term (current) drug therapy
CPT/HCPCS: 36415; 70450; 80053; 80178; 85025; 99284

== ENCOUNTER 2020-11-05 16:06 | Emergency (ER) | payer MEDICAID ==
[~2020-11-05] VITALS: Ht 172.7 cm; Wt 82.3 kg
[2020-11-05] MEDS ORDERED: levetiracetam 250mg tablet PO ONE (17:30)
--- NOTE | 2020-11-05 17:36 | NUR ---
Walked by patients room at approx. 1733. Patient was actively seizing. Called for help to ER bed 13. Jurgen TEJADA in room when called. Patient was found seizing unsure how long patient had be having seizure before entering room. When entered room patient seized for approx. 30 seconds in length. PIV placed in the LAC and Ativan 2 mg IV administered per verbal order from Jurgen TEJADA. Patient oxygen saturation decreased to low 40% during seizure, Jurgen TEJADA suctioned patients mouth and after seizure patient oxygen saturation increased to 96% on RA. Patient does not currently need to be placed on oxygen, but will monitor closely. Jurgen TEJADA stated that he would change order for PO keppra to IV Keppra. Will notify Ceferino FRANCIS.
[2020-11-05] MEDS ORDERED: Levetiracetam-NS 500mg/100ml 100 ML IV STA (17:38)
[2020-11-05 17:42] LABS: BASOPHILS # (AUTO) 0.1 X10'3 (0-0.2); BASOPHILS % (AUTO) 0.6 % (0-1); EOSINOPHILS # (AUTO) 0.1 X10'3 (0-0.9); EOSINOPHILS % (AUTO) 0.6 % (0-6); LYMPHOCYTES # (AUTO) 2.3 X10'3 (1.1-4.8); LYMPHOCYTES % (AUTO) 20.1 % (21-51); MEAN PLATELET VOLUME 8.2 FL (7.4-10.4); MONOCYTES # (AUTO) 0.9 X10'3 (0-0.9); MONOCYTES % (AUTO) 8.1 % (2-12); NEUTROPHILS # (AUTO) 8.2 X10'3 (1.8-7.7); NEUTROPHILS % (AUTO) 70.6 % (42-75); PLATELET COUNT 186 X10'3 (140-440); WHITE BLOOD COUNT 11.6 X10'3 (4.5-11.0)
[2020-11-05] MEDS ORDERED: LORazepam 2 mg/ml vial IV ONE (17:45)
[2020-11-05 18:00] LABS: ALANINE AMINOTRANSFERASE 29 U/L (12-78); ALBUMIN 4.8 G/DL (3.4-5.0); ALBUMIN/GLOBULIN RATIO 1.2 (1.1-1.5); ALKALINE PHOSPHATASE 107 IU/L (46-116); ANION GAP 23 (8-16); ASPARTATE AMINO TRANSFERASE 28 U/L (10-37); BILIRUBIN,TOTAL 0.3 MG/DL (0.1-1.0); BLOOD UREA NITROGEN 22 MG/DL (7-18); BUN/CREATININE RATIO 19.8 (5.4-32.0); CALCIUM 8.8 MG/DL (8.5-10.1); CHLORIDE 99 MMOL/L (99-107); CREATININE 1.11 MG/DL (0.60-1.10); GLUCOSE 107 MG/DL (70-104); POTASSIUM 4.6 MMOL/L (3.5-5.1); SODIUM 144 MMOL/L (135-145); TOTAL CARBON DIOXIDE 22.1 MMOL/L (24-32); TOTAL PROTEIN 8.9 G/DL (6.4-8.2); eGFR 73 ML/MIN
[2020-11-05 18:14] LABS: HEMOGLOBIN 15.2 g/dl (14.0-17.9); RED BLOOD COUNT 4.64 X10'6 (4.70-6.10)
[2020-11-05 18:15] LABS: HEMATOCRIT 44.3 % (42.0-52.0); MEAN CORPUSCULAR HEMOGLOBIN 32.8 PG (27.0-31.0); MEAN CORPUSCULAR HGB CONC 34.4 g/dL (33.0-36.5); MEAN CORPUSCULAR VOLUME 95.4 FL (78-98); RED CELL DISTRIBUTION WIDTH 13.1 % (11.5-14.5)
[2020-11-05] MEDS ORDERED: LEVE10002 PO (20:05)
[2020-11-05 20:53] VITALS: BP 138/93
== END 2020-11-05 20:51 | disposition home or self-care (01) ==
LOC: ER 16:06
DX: G40.909 Epilepsy, unspecified, not intractable, without status epilepticus (principal); I10 Essential (primary) hypertension; F20.9 Schizophrenia, unspecified; Z86.69 Personal history of other diseases of the nervous system and sense organs; Z98.890 Other specified postprocedural states; Z79.899 Other long term (current) drug therapy
CPT/HCPCS: 36415; 80053; 84443; 85025; 96365; 96375; 99285; J1953; J2060

== ENCOUNTER 2021-01-17 17:41 | Emergency (ER) | payer MEDICAID ==
[~2021-01-17] VITALS: Ht 162.6 cm; Wt 68.0 kg
[~2021-01-17 17:41] MED LIST changes: +LEVE10002 PO; -QUET200T30 PO; +QUET200T31 PO
[2021-01-17 19:03] VITALS: BP 127/77
[2021-01-17] MEDS ORDERED: levetiracetamNACL 1500mg/100mL 100 ML IV ONE (19:22)
[2021-01-17] MEDS ORDERED: Levetiracetam-NS 500mg/100ml 100 ML IV ONE (19:30)
[2021-01-17 19:33] LABS: ALANINE AMINOTRANSFERASE 23 U/L (12-78); ALBUMIN 4.2 G/DL (3.4-5.0); ALBUMIN/GLOBULIN RATIO 1.2 (1.1-1.5); ALKALINE PHOSPHATASE 115 IU/L (46-116); ANION GAP 8 (8-16); ASPARTATE AMINO TRANSFERASE 19 U/L (10-37); BILIRUBIN,TOTAL 0.3 MG/DL (0.1-1.0); BLOOD UREA NITROGEN 14 MG/DL (7-18); BUN/CREATININE RATIO 14.9 (5.4-32.0); CALCIUM 8.2 MG/DL (8.5-10.1); CHLORIDE 97 MMOL/L (99-107); CREATININE 0.94 MG/DL (0.60-1.10); GLUCOSE 102 MG/DL (70-104); POTASSIUM 4.1 MMOL/L (3.5-5.1); SODIUM 134 MMOL/L (135-145); TOTAL CARBON DIOXIDE 29.3 MMOL/L (24-32); TOTAL PROTEIN 7.6 G/DL (6.4-8.2); eGFR 88 ML/MIN
--- NOTE | 2021-01-17 21:15 | NUR ---
Call placed to caregiver to notify him that his client was being discharged
== END 2021-01-17 21:41 | disposition home or self-care (01) ==
LOC: ER 17:42
DX: R56.9 Unspecified convulsions (principal); R51.9 Headache, unspecified; I10 Essential (primary) hypertension; F20.9 Schizophrenia, unspecified; Z86.69 Personal history of other diseases of the nervous system and sense organs; Z98.890 Other specified postprocedural states; Z79.899 Other long term (current) drug therapy
CPT/HCPCS: 36415; 80053; 96365; 99284; J1953

== ENCOUNTER 2022-01-01 17:52 | Emergency (ER) | payer MEDICAID ==
[~2022-01-01] VITALS: Ht 177.8 cm; Wt 95.5 kg
[2022-01-01 18:49] VITALS: BP 110/65
--- NOTE | 2022-01-01 19:34 | NUR ---
Number to call for ride home
[2022-01-01 23:30] LABS: BASOPHILS % (AUTO) 0.3 % (0-1); EOSINOPHILS # (AUTO) 0.1 X10'3 (0-0.9); EOSINOPHILS % (AUTO) 0.7 % (0-6); HEMATOCRIT 31.2 % (42.0-52.0); HEMOGLOBIN 10.8 g/dl (14.0-17.9); LYMPHOCYTES % (AUTO) 7.7 % (21-51); MEAN CORPUSCULAR HEMOGLOBIN 33.1 PG (27.0-31.0); MEAN CORPUSCULAR HGB CONC 34.7 g/dL (33.0-36.5); MEAN CORPUSCULAR VOLUME 95.4 FL (78-98); MEAN PLATELET VOLUME 9.1 FL (7.4-10.4); MONOCYTES # (AUTO) 0.7 X10'3 (0-0.9); MONOCYTES % (AUTO) 5.3 % (2-12); NEUTROPHILS # (AUTO) 11.5 X10'3 (1.8-7.7); PLATELET COUNT 109 X10'3 (140-440); RED BLOOD COUNT 3.27 X10'6 (4.70-6.10); RED CELL DISTRIBUTION WIDTH 12.6 % (11.5-14.5); WHITE BLOOD COUNT 13.3 X10'3 (4.5-11.0)
[2022-01-01 23:54] LABS: ALANINE AMINOTRANSFERASE 29 U/L (12-78); ALBUMIN 3.9 G/DL (3.4-5.0); ALBUMIN/GLOBULIN RATIO 1.2 (1.1-1.5); ALKALINE PHOSPHATASE 85 IU/L (46-116); ANION GAP 10 (8-16); ASPARTATE AMINO TRANSFERASE 16 U/L (10-37); BILIRUBIN,TOTAL 0.3 MG/DL (0.1-1.0); BLOOD UREA NITROGEN 21 MG/DL (7-18); BUN/CREATININE RATIO 15.9 (5.4-32.0); CALCIUM 8.9 MG/DL (8.5-10.1); CHLORIDE 99 MMOL/L (99-107); CREATININE 1.32 MG/DL (0.60-1.10); GLUCOSE 98 MG/DL (70-104); SODIUM 136 MMOL/L (135-145); TOTAL CARBON DIOXIDE 27.2 MMOL/L (24-32); TOTAL PROTEIN 7.1 G/DL (6.4-8.2); eGFR 59 ML/MIN
[2022-01-02 00:08] LABS: VALPROATE < 3.0 UG/ML (50-100)
[2022-01-02 00:09] LABS: ACETAMINOPHEN < 2.0 UG/ML (10-30); ETHANOL < 0.010 GM/DL (0.0-0.010)
--- NOTE | 2022-01-02 00:40 | NUR ---
Pt given sandwich. Pt has large muscle twitches or spasms, but pt alert and at baseline. Pt does not lose conciousness.
== END 2022-01-02 01:01 | disposition home or self-care (01) ==
LOC: ER 17:52
DX: R56.9 Unspecified convulsions (principal); I10 Essential (primary) hypertension; F20.9 Schizophrenia, unspecified; E06.9 Thyroiditis, unspecified; Z79.899 Other long term (current) drug therapy
CPT/HCPCS: 36415; 80053; 80164; 80178; 80320; 80329; 83605; 85025; 99284

== ENCOUNTER 2022-04-26 09:31 | Emergency (ER) | payer MEDICAID ==
[~2022-04-26] VITALS: Ht 172.7 cm; Wt 85.0 kg
--- NOTE | 2022-04-26 09:43 | NUR ---
Pt was walking in his home and tripped and fell. Pt hit is left shoulder and left head. Pt now has a left head lac and leftsided shoulder pain. Pt is alert and oriented at this time but is delayed.
[2022-04-26] MEDS ORDERED: LIDOcaine 1% W/epiNEPHrine 1:100,000 20ml vial SQ ONE (10:30)
[2022-04-26] MEDS ORDERED: LIDOCAINE 1%/EPI 1:100,000 inj. 10 ML multi-dose vial SQ ONE (10:45)
[2022-04-26 11:00] LABS: BASOPHILS % (AUTO) 0.6 % (0-1); EOSINOPHILS # (AUTO) 0.1 X10'3 (0-0.9); EOSINOPHILS % (AUTO) 1.4 % (0-6); HEMATOCRIT 38.5 % (42.0-52.0); HEMOGLOBIN 12.7 g/dl (14.0-17.9); LYMPHOCYTES % (AUTO) 15.9 % (21-51); MEAN CORPUSCULAR VOLUME 96.9 FL (78-98); MEAN PLATELET VOLUME 8.7 FL (7.4-10.4); MONOCYTES # (AUTO) 0.5 X10'3 (0-0.9); MONOCYTES % (AUTO) 7.5 % (2-12); NEUTROPHILS # (AUTO) 4.8 X10'3 (1.8-7.7); NEUTROPHILS % (AUTO) 74.6 % (42-75); PLATELET COUNT 133 X10'3 (140-440); RED BLOOD COUNT 3.97 X10'6 (4.70-6.10); RED CELL DISTRIBUTION WIDTH 13.4 % (11.5-14.5); WHITE BLOOD COUNT 6.4 X10'3 (4.5-11.0)
[2022-04-26 11:22] LABS: ALANINE AMINOTRANSFERASE 33 U/L (12-78); ALBUMIN 4.1 G/DL (3.4-5.0); ALBUMIN/GLOBULIN RATIO 1.2 (1.1-1.5); ALKALINE PHOSPHATASE 105 IU/L (46-116); ANION GAP 7 (8-16); ASPARTATE AMINO TRANSFERASE 21 U/L (10-37); BILIRUBIN,TOTAL 0.2 MG/DL (0.1-1.0); BLOOD UREA NITROGEN 19 MG/DL (7-18); BUN/CREATININE RATIO 18.6 (5.4-32.0); CALCIUM 9.2 MG/DL (8.5-10.1); CHLORIDE 100 MMOL/L (99-107); CREATININE 1.02 MG/DL (0.60-1.10); GLUCOSE 88 MG/DL (70-104); POTASSIUM 4.1 MMOL/L (3.5-5.1); SODIUM 136 MMOL/L (135-145); TOTAL CARBON DIOXIDE 28.8 MMOL/L (24-32); TOTAL PROTEIN 7.4 G/DL (6.4-8.2); eGFR 80 ML/MIN
[2022-04-26 11:56] VITALS: BP 145/84
== END 2022-04-26 11:57 ==
LOC: ER 09:31
DX: S01.81XA Laceration without foreign body of other part of head, initial encounter (principal); G40.909 Epilepsy, unspecified, not intractable, without status epilepticus; I10 Essential (primary) hypertension; F20.9 Schizophrenia, unspecified; Z98.890 Other specified postprocedural states; W18.39XA Other fall on same level, initial encounter; Y93.89 Activity, other specified; Y92.89 Other specified places as the place of occurrence of the external cause; Y99.8 Other external cause status
CPT/HCPCS: 12011; 36415; 80053; 85025; 99284; J3490; J7030; 12001

== ENCOUNTER 2022-10-18 21:46 | Emergency (ER) | payer MEDICAID ==
[~2022-10-18] VITALS: Ht 175.3 cm; Wt 170.0 kg
[~2022-10-18 21:46] MED LIST changes: -BENZ1TAB7 PO; +BENZ1TAB78 PO
[2022-10-18] MEDS ORDERED: LIDOcaine 1% W/epiNEPHrine 1:100,000 20ml vial IJ ONE (23:45)
[2022-10-18] MEDS ORDERED: LIDOcaine/epinephrine/tetracaine TOPICAL sol 3 ML syringe TOP ONE (23:45)
[2022-10-19 01:00] VITALS: BP 108/69
== END 2022-10-19 01:14 | disposition home or self-care (01) ==
LOC: ER 21:47
DX: S01.511A Laceration without foreign body of lip, initial encounter (principal); I10 Essential (primary) hypertension; W45.8XXA Other foreign body or object entering through skin, initial encounter; Y93.89 Activity, other specified; Y92.89 Other specified places as the place of occurrence of the external cause; Y99.8 Other external cause status
CPT/HCPCS: 12011; 99284; J3490; A6449

== ENCOUNTER 2022-10-25 17:10 | Emergency (ER) | payer MEDICAID ==
[~2022-10-25] VITALS: Ht 175.3 cm; Wt 92.0 kg
[2022-10-25 17:11] VITALS: BP 125/86
== END 2022-10-25 18:52 | disposition home or self-care (01) ==
LOC: ER 17:11
DX: T14.8XXA Other injury of unspecified body region, initial encounter (principal); Z48.00 Encounter for change or removal of nonsurgical wound dressing; X58.XXXD Exposure to other specified factors, subsequent encounter
CPT/HCPCS: 99281

== ENCOUNTER 2023-11-23 17:00 | Emergency (ER) | payer MEDICAID ==
[~2023-11-23] VITALS: Ht 172.7 cm; Wt 80.0 kg
[2023-11-23 17:18] VITALS: BP 115/82; PULSE 106; RESP 16; TEMP 97.9; O2SAT 98
== END 2023-11-23 19:37 | disposition home or self-care (01) ==
LOC: ER 17:01
DX: S00.81XA Abrasion of other part of head, initial encounter (principal); I10 Essential (primary) hypertension; R68.84 Jaw pain; Z79.899 Other long term (current) drug therapy; Z79.2 Long term (current) use of antibiotics; W19.XXXA Unspecified fall, initial encounter; Y93.89 Activity, other specified; Y92.89 Other specified places as the place of occurrence of the external cause; Y99.8 Other external cause status
CPT/HCPCS: 70486; 99284